=== PATIENT | male | born 2000 ===

== ENCOUNTER 2021-11-08 19:49 | Emergency (ER) | payer OTHER ==
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
[2021-11-08] MEDS ORDERED: IBUPROFEN 800 MG TAB PO ONE (20:48)
[2021-11-08 21:56] VITALS: BP 117/65
== END 2021-11-08 22:00 | disposition home or self-care (01) ==
LOC: ED 19:49
DX: S39.012A Strain of muscle, fascia and tendon of lower back, initial encounter (principal); S80.01XA Contusion of right knee, initial encounter; F12.90 Cannabis use, unspecified, uncomplicated; V89.2XXA Person injured in unspecified motor-vehicle accident, traffic, initial encounter; Y93.89 Activity, other specified; Y92.89 Other specified places as the place of occurrence of the external cause; Y99.8 Other external cause status
CPT/HCPCS: 99282